=== PATIENT | female | born 1975 | race American Indian/Alaskan Native ===

== ENCOUNTER 2017-11-18 18:10 | Emergency (ER) | payer OTHER ==
[2017-11-18] MEDS ORDERED: TYLENOL ONE (18:37)
[2017-11-18] MEDS ORDERED: TYLENOL PO ONE (18:38)
[2017-11-18] MEDS ORDERED: MOTRIN PO ONE (22:23)
--- NOTE | 2017-11-18 22:48 | Emergency Department Report ---
ED General Adult HPI - General Chief complaint: Fever Stated complaint: FEVER/CHILLS/WEAK Time Seen by Provider: 11/18/17 22:21 Source: patient Mode of arrival: Ambulatory Limitations: No Limitations - History of Present Illness Initial comments: There is a 42-year-old [place] female . Her [employer] yesterday for being started on Flagyl . Fever chills abdominal pain back pain with cough and dysuria sudden onset 4:00 today , pain described as 14 and aching radiating from back to suprapubic exacerbated by voiding bleed but nothing patient denies history of renal stones denies history of STD STD workup negative at doctor's office on yesterday patient states abdominal pain back pain. 08/10 intermittent nausea Onset/Timin -: hour(s) Location: back, abdomen Radiation: non-radiation, abdomen Severity scale (0 -10): 4 Quality: aching Improves with: cold therapy Worsens with: other (voiding) Associated Symptoms: fever/chills, nausea/vomiting - Related Data Previous Rx's Medication Instructions Recorded Last Taken Type Famotidine [Pepcid] 20 mg PO BID #20 tablet 07/14/15 Unknown Rx diphenhydrAMINE [Benadryl CAP] 25 mg PO Q6HR PRN #20 capsule 07/14/15 Unknown Rx methylPREDNISolone [Medrol] 4 mg PO DAILY #1 tab.ds.pk 07/14/15 Unknown Rx Ibuprofen 800 mg PO TID #30 tablet 11/19/17 Unknown Rx Nitrofurantoin Monohyd/M-Cryst 100 mg PO BID #14 capsule 11/19/17 Unknown Rx [Macrobid 100 mg Capsule] Allergies Allergy/AdvReac Type Severity Reaction Status Date / Time No Known Allergies Allergy Unverified 07/14/15 09:04 ED Review of Systems ROS: Stated complaint: FEVER/CHILLS/WEAK Other details as noted in HPI Constitutional: denies: chills, fever Eyes: denies: eye pain, eye discharge, vision change ENT: denies: ear pain, throat pain Respiratory: denies: cough, shortness of breath, wheezing Cardiovascular: denies: chest pain, palpitations Endocrine: no symptoms reported Gastrointestinal: abdominal pain, nausea, vomiting. denies: diarrhea, constipation, hematemesis, melena, hematochezia Genitourinary: urgency, dysuria, frequency, discharge. denies: hematuria, abnormal menses, dyspareunia Musculoskeletal: denies: back pain, joint swelling, arthralgia Skin: denies: rash, lesions Neurological: denies: headache, weakness, paresthesias Psychiatric: denies: anxiety, depression ED Past Medical Hx - Past Medical History Previous Medical History?: No - Surgical History Past Surgical History?: No - Social History Smoking Status: Never Smoker Substance Use Type: None - Medications Home Medications: Home Medications Medication Instructions Recorded Confirmed Last Taken Type Famotidine [Pepcid] 20 mg PO BID #20 tablet 07/14/15 Unknown Rx diphenhydrAMINE [Benadryl CAP] 25 mg PO Q6HR PRN #20 capsule 07/14/15 Unknown Rx methylPREDNISolone [Medrol] 4 mg PO DAILY #1 tab.ds.pk 07/14/15 Unknown Rx Ibuprofen 800 mg PO TID #30 tablet 11/19/17 Unknown Rx Nitrofurantoin Monohyd/M-Cryst 100 mg PO BID #14 capsule 11/19/17 Unknown Rx [Macrobid 100 mg Capsule] ED Physical Exam - General Limitations: No Limitations General appearance: alert, in no apparent distress - Head Head exam: Present: atraumatic, normocephalic - Eye Eye exam: Present: normal appearance - ENT ENT exam: Present: mucous membranes moist - Neck Neck exam: Present: normal inspection - Respiratory Respiratory exam: Present: normal lung sounds bilaterally. Absent: respiratory distress, wheezes, rhonchi, chest wall tenderness - Cardiovascular Cardiovascular Exam: Present: regular rate, normal rhythm, normal heart sounds. Absent: systolic murmur, diastolic murmur, rubs, gallop - GI/Abdominal GI/Abdominal exam: Present: tenderness (superpubic bilat flank ), normal bowel sounds. Absent: guarding, rebound, bruit, hernia - Rectal Rectal exam: Present: deferred - Extremities Exam Extremities exam: Present: normal inspection - Back Exam Back exam: Present: normal inspection - Neurological Exam Neurological exam: Present: alert, oriented X3 - Psychiatric Psychiatric exam: Present: normal affect, normal mood - Skin Skin exam: Present: warm, dry, intact, normal color. Absent: rash ED Course Vital Signs 11/18/17 18:36 Temperature 101.7 F H Pulse Rate 105 H Respiratory 24 Rate Blood Pressure 122/57 O2 Sat by Pulse 99 Oximetry ED Medical Decision Making - Lab Data Result diagrams: 11/18/17 22:56 11/18/17 22:56 Laboratory Tests 11/18/17 11/18/17 22:56 22:56 WBC 21.3 H RBC 3.52 L Hgb 11.2 Hct 33.8 MCV 96 MCH 32 MCHC 33 RDW 13.9 Plt Count 416 Add Manual Diff Complete Total Counted 100 Seg Neuts % (Manual) 84.0 H Band Neutrophils % 5.0 Lymphocytes % (Manual) 2.0 L Reactive Lymphs % (Man) 0 Monocytes % (Manual) 9.0 H Eosinophils % (Manual) 0 Basophils % (Manual) 0 Metamyelocytes % 0 Myelocytes % 0 Promyelocytes % 0 Blast Cells % 0 Nucleated RBC % Not Reportable Seg Neutrophils # Man 17.9 H Band Neutrophils # 1.1 Lymphocytes # (Manual) 0.4 L Abs React Lymphs (Man) 0.0 Monocytes # (Manual) 1.9 H Eosinophils # (Manual) 0.0 Basophils # (Manual) 0.0 Metamyelocytes # 0.0 Myelocytes # 0.0 Promyelocytes # 0.0 Blast Cells # 0.0 WBC Morphology Not Reportable Hypersegmented Neuts Not Reportable Hyposegmented Neuts Not Reportable Hypogranular Neuts Not Reportable Smudge Cells Not Reportable Toxic Granulation Not Reportable Toxic Vacuolation Not Reportable Dohle Bodies Not Reportable Pelger-Huet Anomaly Not Reportable Karin Rods Not Reportable Platelet Estimate Consistent w auto Clumped Platelets Not Reportable Plt Clumps, EDTA Not Reportable Large Platelets Not Reportable Giant Platelets Rare Platelet Satelliting Not Reportable Plt Morphology Comment Not Reportable RBC Morphology Not Reportable Dimorphic RBCs Not Reportable Polychromasia Not Reportable Hypochromasia Few Poikilocytosis Not Reportable Anisocytosis 1+ Microcytosis Not Reportable Macrocytosis 1+ Spherocytes Not Reportable Pappenheimer Bodies Not Reportable Sickle Cells Not Reportable Target Cells Not Reportable Tear Drop Cells Not Reportable Ovalocytes Not Reportable Helmet Cells Not Reportable Hardy-[place] Bodies Not Reportable [place] Rings Not Reportable [place] Cells Not Reportable Bite Cells Not Reportable Crenated Cell Not Reportable Elliptocytes Not Reportable Acanthocytes (Spur) Not Reportable Rouleaux Not Reportable Hemoglobin C Crystals Not Reportable Schistocytes Not Reportable Malaria parasites Not Reportable Deon Bodies Not Reportable Hem Pathologist Commnt No Sodium 139 Potassium 3.7 Chloride 100.9 Carbon Dioxide 24 Anion Gap 18 BUN 13 Creatinine 1.0 Estimated GFR > 60 BUN/Creatinine Ratio 13 Glucose 130 H Calcium 9.6 Total Bilirubin 0.50 AST 39 ALT 53 Alkaline Phosphatase 80 Total Protein 7.1 Albumin 4.4 Albumin/Globulin Ratio 1.6 - Radiology Data Radiology results: report reviewed, image reviewed CT demonstrating multiple ovarian cysts 1 renal cyst no pyelonephritis or renal stones - Medical Decision Making Patient advises all symptoms are relieved this is likely UTI no pyelonephritis abdominal exam is totally benign at this time there is no CVA tenderness no nausea vomiting plan and Macrobid to current treatment regimen for 7 days patient will follow up with [employer] next week as scheduled patient verbalized agreement and understanding with discharge plan patient to DC to home in stable condition at this time, ua pending Critical care attestation.: If time is entered above; I have spent that time in minutes in the direct care of this critically ill patient, excluding procedure time. ED Disposition Clinical Impression: UTI (urinary tract infection) Qualifiers: Urinary tract infection type: acute cystitis Hematuria presence: without hematuria Qualified Code(s): N30.00 - Acute cystitis without hematuria Ovarian cyst Qualifiers: Laterality: bilateral Qualified Code(s): N83.201 - Unspecified ovarian cyst, right side Disposition: DC-01 TO HOME OR SELFCARE Is pt being admited?: No Does the pt Need Aspirin: No Condition: Good Instructions: Ovarian Cyst (ED), Urinary Tract Infection in Women (ED) Prescriptions: Ibuprofen 800 mg PO TID #30 tablet Nitrofurantoin Monohyd/M-Cryst [Macrobid 100 mg Capsule] 100 mg PO BID #14 capsule Referrals: DOC,ED, MD [Primary Care Provider] - 3-5 Days Forms: Work/School Release Form(ED) Time of Disposition: 03:39
--- NOTE | 2017-11-18 23:14 | XRay Report ---
FINAL REPORT EXAM: XR CHEST ROUTINE 2V HISTORY: fever cough TECHNIQUE: PA and lateral views of the chest Comparison: None FINDINGS: There is no evidence of infiltrate, pneumothorax or pleural fluid collection. The cardiomediastinal silhouette is normal in appearance. The bony structures are unremarkable. IMPRESSION: 1. No evidence of an acute pulmonary process.
--- NOTE | 2017-11-18 23:17 | XRay Report ---
FINAL REPORT EXAM: XR ABDOMEN 1V AP HISTORY: abd pain TECHNIQUE: Frontal view of the abdomen and pelvis Comparison: None FINDINGS: The bowel gas pattern is nonobstructive. There is a moderate amount of stool in the distal transverse colon. There is no definite evidence of pneumoperitoneum. Surgical clips in the right upper quadrant are consistent with previous cholecystectomy. The bony structures are unremarkable. IMPRESSION: 1. No plain film evidence of an acute intra-abdominal process. If there is a clinical concern of an acute intra-abdominal process, CT imaging may be helpful.
[2017-11-18 23:20] LABS: Hematocrit 33.8 % (30.3-42.9); Hemoglobin 11.2 gm/dl (10.1-14.3); Mean Corpuscular HGB Conc 33 % (30-34); Mean Corpuscular Hemoglobin 32 pg (28-32); Mean Corpuscular Volume 96 fl (79-97); Platelet Count 416 K/mm3 (140-440); Red Blood Count 3.52 M/mm3 (3.65-5.03); Red Cell Distribution Width 13.9 % (13.2-15.2)
[2017-11-19] MEDS ORDERED: NACL 0.9% 1000 ML 1,000 ML IV ONE (00:01)
[2017-11-19 00:04] LABS: Alanine Aminotransferase 53 units/L (7-56); Albumin 4.4 g/dL (3.9-5); BUN/Creatinine Ratio 13; Blood Urea Nitrogen 13 mg/dL (7-17); Calcium 9.6 mg/dL (8.4-10.2); Hemolysis Index 2
[2017-11-19] MEDS ORDERED: ROCEPHIN/NS 1 GM/50 ML 1 GM/50 ML BAG IV ONE (00:05)
[2017-11-19 00:17] LABS: Anisocytosis 1+; Band Neutrophils # (Manual) 1.1 K/mm3; Basophils % (Manual) 0 % (0.0-1.8); Eosinophils % (Manual) 0 % (0.0-4.3); Giant Platelets Rare; Hypochromasia Few; Macrocytosis 1+; Platelet Estimate Consistent w Auto; Total Cells Counted 100
--- NOTE | 2017-11-19 03:10 | Cat Scan Report ---
FINAL REPORT EXAM: CT ABDOMEN PELVIS W CON HISTORY: abdominal pain TECHNIQUE: Helical CT scan through the abdomen and pelvis during intravenous injection of iodinated contrast. Images are reconstructed in the sagittal and coronal planes. Oral contrast was not given. PRIORS: None. FINDINGS: The lung bases are clear. The liver, pancreas, spleen and adrenal glands appear normal. There are surgical clips in the gallbladder fossa. There is a 1.4 cm cyst in the lower pole of the right kidney. Otherwise, the kidneys appear normal. There are multiple right ovarian cysts and follicles with the largest measuring 4.6 x 2.3 cm. There is a 3.1 cm cyst in the left ovary. There is a 4.9 cm right anterior myometrial fibroid. There is several other smaller exophytic uterine fibroids. The stomach appears grossly within normal limits. There are no abnormally dilated loops of bowel or acute inflammatory changes. A normal-appearing appendix is identified. The abdominal aorta has a normal diameter. The bones and subcutaneous soft tissues are unremarkable for age. There is a small supraumbilical ventral hernia containing normal appearing fat. IMPRESSION: 1. Bilateral ovarian cysts. Recommend further evaluation with ultrasound. 2. Multiple uterine fibroids 3. Otherwise, no acute findings
[2017-11-19 04:05] VITALS: BP 102/54
[2017-11-19 04:38] LABS: Bacteria,Urine 1+ /HPF (Negative); Bilirubin,Urine NEG (Negative); Blood,Urine NEG (Negative); Color,Urine Yellow (Yellow); Protein,Urine <15 mg/dL mg/dL (Negative); Urobilinogen,Urine < 2.0 mg/dL (<2.0)
== END 2017-11-19 04:05 | disposition home or self-care (01) ==
LOC: ED 18:10
DX: N30.00 Acute cystitis without hematuria (principal); N83.201 Unspecified ovarian cyst, right side
CPT/HCPCS: 36415; 71046; 74018; 74177; 80053; 81001; 85007; 85025; 96365; 99284; J0696; J7030; Q9967